=== PATIENT | female | born 1995 | race Caucasian/White ===

== ENCOUNTER 2016-04-18 14:00 | Emergency (ER) | payer BC ==
[2016-04-18 15:36] VITALS: BP 137/65
--- NOTE | 2016-04-18 16:22 | UC ---
Respiratory Complaint HPI - HPI Summary HPI Summary: 24 hrs fever, dry cough, burning in chest, malaise, body aches. Did get a flu shot. Contact with viral URI and also another with Strep. Had Strep last year, felt similar though more of a ST. No vomiting, able to eat and drink. - History of Current Complaint Chief Complaint: UCRespiratory Stated Complaint: COUGH Time Seen by Provider: 04/18/16 16:07 Hx Obtained From: Patient Hx Last Menstrual Period: 03/18/16 Onset/Duration: Gradual Onset Timing: Constant Severity Initially: Mild Severity Currently: Mild Character: Cough: Nonproductive Aggravating Factors: Recumbent Position Alleviating Factors: OTC Meds Associated Signs And Symptoms: Positive: Fever, Chills, URI, Hoarseness - Risk Factors Pulmonary Embolism Risk Factors: Negative Cardiac Risk Factors: Negative Pseudomonas Risk Factors: Negative Tuberculosis Risk Factors: Negative - Allergies/Home Medications Allergies/Adverse Reactions: Allergies Allergy/AdvReac Type Severity Reaction Status Date / Time Cefprozil [From Cefzil] Allergy Intermediate Hives Verified 04/18/16 15:36 PMH/Surg Hx/FS Hx/Imm Hx Previously Healthy: Yes - Surgical History Surgical History: None Surgery Procedure, Year, and Place: denies - Family History Known Family History: Positive: None - Social History Occupation: Student Lives: Alone - dorm Alcohol Use: Occasionally Substance Use Type: None Smoking Status (MU): Never Smoked Tobacco - Immunization History Most Recent Influenza Vaccination: 12/06 Review of Systems Constitutional: Fever, Chills, Fatigue Skin: Negative Eyes: Negative ENT: Sore Throat - very mild Respiratory: Cough - dry, causes pain anterior chest wall Cardiovascular: Negative Gastrointestinal: Negative Genitourinary: Negative Motor: Negative Neurovascular: Negative Musculoskeletal: Myalgia Neurological: Negative Psychological: Negative All Other Systems Reviewed And Are Negative: Yes Physical Exam Triage Information Reviewed: Yes Appearance: Well-Appearing, No Pain Distress, Well-Nourished Vital Signs: Initial Vital Signs Temp 101.8 F 04/18/16 15:31 Pulse 93 04/18/16 15:31 Resp 16 04/18/16 15:31 BP 137/65 04/18/16 15:31 Pulse Ox 100 04/18/16 15:31 Vital Signs Reviewed: Yes Eye Exam: Normal Eyes: Positive: Conjunctiva Clear ENT Exam: Normal ENT: Positive: Hearing grossly normal, Pharyngeal erythema - mild, TMs normal, Tonsillar swelling. Negative: Trismus, Muffled/hoarse voice Neck exam: Normal Respiratory Exam: Normal Respiratory: Positive: Lungs clear, Normal breath sounds, No respiratory distress, No accessory muscle use Cardiovascular Exam: Normal Cardiovascular: Positive: RRR, No Murmur, Pulses Normal, Brisk Capillary Refill Musculoskeletal Exam: Normal Neurological Exam: Normal Psychological Exam: Normal Skin Exam: Normal UC Diagnostic Evaluation - Laboratory O2 Sat by Pulse Oximetry: 100 Diagnostic Studies Comment: Strep neg Respiratory Course/Dx - Differential Dx/Diagnosis Differential Diagnosis/HQI/PQRI: Bronchitis, Lower Resp Infection, Sinusitis Provider Diagnoses: URI Discharge - Discharge Plan Condition: Stable Disposition: HOME Prescriptions: Benzonatate CAP* [Tessalon CAP*] 100 mg PO TID PRN #20 cap PRN Reason: Cough Patient Education Materials: Upper Respiratory Infection (ED) Referrals: Non Staff,Doctor [Primary Care Provider] - Additional Instructions: It is possible you have the influenza virus, but you've had the flu shot and you do not appear seriously ill. The treatment for mild influenza is the same as the treatment for other viral upper respiratory tract infections: rest, Tylenol or Motrin for fever/body aches, fluids.
[2016-04-18] MEDS ORDERED: Ibuprofen TAB* 400 MG PO ONE (16:38)
== END 2016-04-18 17:00 | disposition home or self-care (01) ==
LOC: UCCORT 14:00
DX: J06.9 Acute upper respiratory infection, unspecified (principal); Z88.1 Allergy status to other antibiotic agents
CPT/HCPCS: 87651; 99212; A9270-GY; G0463

== ENCOUNTER 2016-06-14 12:33 | Emergency (ER) | payer BC ==
[2016-06-14 13:43] VITALS: BP 135/63
--- NOTE | 2016-06-14 15:06 | UC ---
Eye Complaint HPI - HPI Summary HPI Summary: pt presents with c/o bilateral eye redness and discharge. Pt states that this morning her eye were "glued shut". Pt is a [employer] student. - History of Current Complaint Chief Complaint: UCEye Stated Complaint: EYE COMPLAINT Time Seen by Provider: 06/14/16 15:03 Hx Obtained From: Patient Hx Last Menstrual Period: 05/29/16 ?: No Onset/Duration: Gradual Onset, Lasting Days Timing: Constant Severity Initially: Mild Severity Currently: Mild Location of Injury: Conjunctiva Character: Dull Aggravating Factor(s): Light Alleviating Factor(s): Nothing Associated Signs And Symptoms: Positive: Drainage (Purulent) - Risk Factors Acute Glaucoma Risk Factors: Eye Inflammation - Allergies/Home Medications Allergies/Adverse Reactions: Allergies Allergy/AdvReac Type Severity Reaction Status Date / Time Cefprozil [From Cefzil] Allergy Intermediate Hives Verified 06/14/16 13:34 PMH/Surg Hx/FS Hx/Imm Hx Previously Healthy: Yes - Surgical History Surgical History: None Surgery Procedure, Year, and Place: denies - Family History Known Family History: Positive: Other - positive for URI - Social History Occupation: Student - [employer] Alcohol Use: None Substance Use Type: None Smoking Status (MU): Never Smoked Tobacco - Immunization History Most Recent Influenza Vaccination: 12/06 Review of Systems Constitutional: Negative Skin: Negative Eyes: Drainage, Eye Redness - bialteral ENT: Negative Respiratory: Negative Cardiovascular: Negative Gastrointestinal: Negative Genitourinary: Negative Motor: Negative Neurovascular: Negative Musculoskeletal: Negative Neurological: Negative Psychological: Negative All Other Systems Reviewed And Are Negative: Yes Physical Exam Triage Information Reviewed: Yes Appearance: Well-Appearing Vital Signs: Initial Vital Signs Temp 97.5 F 06/14/16 13:34 Pulse 80 06/14/16 13:34 Resp 14 06/14/16 13:34 BP 135/63 06/14/16 13:34 Pulse Ox 100 06/14/16 13:34 Eye Exam: Other Eyes: Positive: Conjunctiva Inflamed, Discharge - yellow/green ENT Exam: Normal Neck exam: Normal Respiratory Exam: Normal Cardiovascular Exam: Normal Musculoskeletal Exam: Normal Neurological Exam: Normal Psychological Exam: Normal Skin Exam: Normal Eye Complaint Course/Dx - Differential Dx/Diagnosis Differential Diagnosis/HQI/PQRI: Conjunctivitis Provider Diagnoses: conjunctivitis bilateral Discharge - Discharge Plan Condition: Stable Disposition: HOME Prescriptions: Polymyx/Trimethoprim OPTH* [Polytrim OPHTH*] 2 drop BOTH EYES Q8H #1 btl Patient Education Materials: Conjunctivitis (ED) Referrals: [facility] [place] [facility] [Outside] Non Staff,Doctor [Primary Care Provider] - Additional Instructions: Please follow up with your PCP or return to clinic as needed.
== END 2016-06-14 15:20 | disposition home or self-care (01) ==
LOC: UCCORT 12:33
DX: H10.33 Unspecified acute conjunctivitis, bilateral (principal); Z88.1 Allergy status to other antibiotic agents
CPT/HCPCS: 99212; G0463